=== PATIENT | female | born 1950 | race Caucasian/White ===

== ENCOUNTER → 2017-08-02 | Outpatient (CLI) | payer OTHER ==
[~2017-08-02] MED LIST: HYDCHL25 PO; MULVITMIND PO; SERT50 PO
== END ==
LOC: LAB EV 18:41
DX: N39.0 Urinary tract infection, site not specified (principal)
CPT/HCPCS: 87077; 87086; 87186

== ENCOUNTER → 2018-08-22 | Outpatient (CLI) | payer MEDICARE | LOC: LAB SHORT 13:52 → LAB 13:52 | PROVIDERS: Nurse Practitioner Family | DX: Z01.419 Encounter for gynecological examination (general) (routine) without abnormal findings (principal) | CPT/HCPCS: G0145 ==

== ENCOUNTER → 2020-01-01 | Outpatient (CLI) | payer MEDICARE, OTHER | LOC: LAB 19:10 → LAB SHORT 19:10 | PROVIDERS: Nurse Practitioner Family | DX: Z01.419 Encounter for gynecological examination (general) (routine) without abnormal findings (principal) | CPT/HCPCS: G0145 ==